=== PATIENT | male | born 1985 ===

== ENCOUNTER 2023-12-22 02:35 | Emergency (ER) | payer SELFPAY ==
[2023-12-22 03:22] LABS: BASOPHILS PERCENT AUTO 0.6 % (0.0-1.0); EOSINOPHILS PERCENT AUTO 4.8 % (1.0-3.0); HEMATOCRIT 42.9 % (40.0-54.0); LYMPHOCYTES PERCENT AUTO 31.3 % (20.5-50.1); MEAN CORPUSCULAR HEMOGLOBIN 30.9 pg (27.0-34.0); MEAN CORPUSCULAR HGB CONC 32.6 g/dL (33.0-35.0); MEAN CORPUSCULAR VOLUME 94.7 fL (80-100); NEUTROPHILS PERCENT AUTO 53.3 % (42.2-75.2); PLATELET COUNT,PLT 295 10^3/uL (150-450); RED BLOOD CELL COUNT 4.53 10^6/uL (4.6-6.2); WHITE BLOOD CELL COUNT,WBC 10.3 10^3/uL (5.0-10.0)
[2023-12-22] MEDS: diphenhydrAMINE 50 MG/ML SDV IVPUSH ONE (03:22)
[2023-12-22] MEDS: Ketorolac 30 MG/ML SDV IVPUSH ONE (03:23)
[2023-12-22] MEDS: Metoclopramide 10 MG/2 ML SDV IVPUSH ONE (03:24)
[2023-12-22] MEDS: Sodium Chloride 0.9% 10 ML Syringe FLUSH PRN (03:24)
[2023-12-22 03:45] LABS: ALANINE AMINOTRANSFERASE,ALT 42 U/L (16-63); ALBUMIN 2.9 g/dL (3.4-5.0); ALKALINE PHOSPHATASE 108 U/L (46-116); ANION GAP 12.6 mEq/L (7-13); ASPARTATE AMNIOTRANSFERASE,AST 32 U/L (15-37); BILIRUBIN TOTAL 0.2 mg/dL (0.2-1.0); BLOOD UREA NITROGEN,BUN 15 mg/dL (7-18); BUN/CREATININE RATIO 15.6 (No establ ref range); CALCIUM 7.6 mg/dL (8.5-10.1); CARBON DIOXIDE,CO2 28 mmol/L (21-32); CHLORIDE,CL 103 mmol/L (98-107); CREATININE 0.96 mg/dL (0.70-1.30); EST CRCL DRUG DOSING (CG) 96.59 mL/min; GLUCOSE RANDOM 104 mg/dL (70-99); POTASSIUM,K 3.6 mmol/L (3.5-5.1); PROTEIN TOTAL,TP 6.1 g/dL (6.4-8.2); SODIUM,NA 140 mmol/L (136-145)
[2023-12-22 03:48] LABS: A/G RATIO 0.91; C-REACTIVE PROTEIN < 0.50 ng/dL (<=0.50); ESTIMATED GFR 103 mL/min (>=60)
== END 2023-12-22 05:47 | disposition home or self-care (01) ==
LOC: DL.ED 02:35
DX: G43.009 Migraine without aura, not intractable, without status migrainosus (principal); F17.210 Nicotine dependence, cigarettes, uncomplicated
CPT/HCPCS: 36415; 80053; 85025; 86140; 87635; 87804; 99283; J1200; J1885; J2765; 96374; 96375; J3490; U0002